=== PATIENT | male | born 1950 | race Caucasian/White ===

== ENCOUNTER 2022-08-13 05:49 | Outpatient (CLI) | payer MEDICARE ==
[~2022-08-13] VITALS: Ht 172.7 cm; Wt 95.0 kg
== END 2022-08-14 14:22 | disposition home or self-care (01) ==
LOC: PREOP 05:49
PROVIDERS: ATTEND Surgery
DX: Z01.818 Encounter for other preprocedural examination (principal)

== ENCOUNTER 2022-08-26 08:55 | Day surgery (SDC) | payer MEDICARE ==
[~2022-08-26] VITALS: Ht 172.7 cm; Wt 95.0 kg
[2022-08-26] MEDS ORDERED: LACTATED RINGERS 1,000 ML IV STA (09:13)
[2022-08-26 10:21] VITALS: BP 131/80
[2022-08-26] MEDS ORDERED: PROPOFOL INJECTION 50 ML IV ONE (10:43)
[2022-08-26 11:20] VITALS: BP 144/85
--- NOTE | 2022-08-26 11:20 | Discharge Inst-Simple/Standard ---
Discharge Inst-Standard Patient Instructions/Follow Up Plan of Care/Instructions/FU: Follow up with Dr. Vo in one week Activity as Tolerated: Yes Discharge Diet: Regular Diet KAYLAH VO DO August 26, 2022 11:20
[2022-08-26 11:25] VITALS: BP 157/90
--- NOTE | 2022-08-26 11:26 | Progress Note-Post Operative ---
Post-Operative Progess Note Surgeon (s)/Fish Straightener (s) Surgeon KAYLAH GRECO DO Fish Straightener: na Pre-Operative Diagnosis + cologaurd Post-Operative Diagnosis ileocecal mass, rectal mass, colon polyps, diverticulosis Procedure & Operative Findings Date of Procedure 08/26/22 Procedure Performed/Findings Colonoscopy with cold biopsies of ileocecal mass with martha inking, snare polypectomy x2, hot biopsy polypectomy x3, hot biopsy rectal mass Anesthesia Type per BUS TRANSPORTATION MANAGER Estimated Blood Loss Estimated blood loss (mL): none Specimens/Packing Specimens Removed ileocecal valve, transverse colon, sigmoid colon, rectum colon, and rectum mass KAYLAH GRECO DO August 26, 2022 11:26
[2022-08-26 11:30] VITALS: BP 144/85
[2022-08-26 12:00] VITALS: BP 144/85
--- NOTE | 2022-08-26 15:39 | Anesthesia-General Post-Op ---
MAC Patient Condition Mental Status/LOC: Same as Preop Cardiovascular: Satisfactory Nausea/Vomiting: Absent Respiratory: Satisfactory Pain: Controlled Complications: Absent Post Op Complications Complications None Follow Up Care/Instructions Patient Instructions None needed. Anesthesiology Discharge Order Discharge Order Patient is doing well, no complaints, stable vital signs, no apparent adverse anesthesia problems. No complications reported per nursing. SEUN SANCHEZ CRNA August 26, 2022 15:39
--- NOTE | 2022-08-26 18:56 | OPERATIVE REPORT ---
DATE OF SERVICE: 08/26/2022 PREOPERATIVE DIAGNOSIS: Positive Cologuard. POSTOPERATIVE DIAGNOSES: Ileocecal mass, colon polyps and rectal mass, minimal diverticulosis. PROCEDURES: Colonoscopy with cold biopsies of ileum rectal mass with Nelsy inking, snare polypectomy x2, hot biopsy polypectomy x3, hot biopsy of rectal mass. SURGEON: Kaylah Vo DO ANESTHESIA: Per DIRECTOR SALES SUPPORT. ESTIMATED BLOOD LOSS: None. COMPLICATIONS: None. INDICATIONS: The patient is a 72-year-old male with positive Cologuard. He understands risks and benefits of procedure and wished to proceed. Consent was signed in chart. DESCRIPTION OF PROCEDURE: The patient was taken to the endoscopy suite, placed in left lateral recumbent position. Timeout was performed. Digital rectal exam was performed noting a palpable soft rectal mass, just past the anal verge inside the rectum. No other palpable abnormalities. The scope was inserted into the rectum and advanced all the way to the cecum with minimal difficulty. Prep was adequate. At ileocecal valve, masses present, which cold biopsies were obtained. Distal to this area, 3 mL of Nelsy ink were injected, 1 mL in 3 locations. Scope was then continuously retracted back. No polyps, masses or ulcerations within the ascending colon. Transverse colon had a larger polyp, which snare polypectomy was performed. Scope was then continuously retracted back into the transverse, descending colon with no other pathology noted. In sigmoid colon, 3 small polyps were present, which hot biopsy polypectomy was performed. Scope was then continuously retracted back to the rectum where another polyp was present, which snare polypectomy was performed. Scope was then retroflexed noting the palpable mass, no other pathology. Hot biopsies were obtained. Scope was returned to its normal position, slowly withdrawn until completely removed. The patient tolerated the procedure well without complications, taken to recovery room in stable condition. RECOMMENDATIONS: The patient will repeat colonoscopy likely in one year. We will need surgery to remove the ileocecal mass. We will need further workup with radiological studies and blood work. Await pathology results for further recommendations. Questionable area [ ] small rectal mass, which may need monitoring versus transanal excision or await biopsy results. Job ID: [id number] DocumentID: [id number] Dictated Date: 08/26/2022 11:29:22 Trucking Contractor Date: 08/26/2022 18:55:00 Dictated By: KAYLAH VO DO
== END 2022-08-26 12:00 | disposition home or self-care (01) ==
LOC: ENDO 08:55
PROVIDERS: ATTEND Surgery
DX: D12.0 Benign neoplasm of cecum (principal); D12.3 Benign neoplasm of transverse colon; D12.8 Benign neoplasm of rectum; K63.5 Polyp of colon; R19.5 Other fecal abnormalities; K57.30 Diverticulosis of large intestine without perforation or abscess without bleeding; E66.9 Obesity, unspecified; Z28.310 Unvaccinated for COVID-19; Z87.891 Personal history of nicotine dependence; Z68.31 Body mass index [BMI] 31.0-31.9, adult

== ENCOUNTER 2022-09-18 05:33 | Outpatient (CLI) | payer MEDICARE ==
[~2022-09-18] VITALS: Ht 172.7 cm; Wt 84.8 kg
== END 2022-09-18 14:16 | disposition home or self-care (01) ==
LOC: PREOP 05:33
PROVIDERS: ATTEND Surgery
DX: Z01.818 Encounter for other preprocedural examination (principal)

== ENCOUNTER 2022-09-24 06:58 | Inpatient (IN) | payer MEDICARE ==
[~2022-09-24] VITALS: Ht 172.7 cm; Wt 84.8 kg
[2022-09-24] VITALS (12 sets, daily range): BP systolic 111–144; BP diastolic 69–91
[2022-09-24] MEDS ORDERED: BUP/EPI 0.5% 1:200,000 (SENSORCAINE) 30 ML VIAL ONE (07:09)
[2022-09-24] MEDS ORDERED: metroNIDAZOLE 500MG/100ML IVPB 100 ML IV ONE (07:30)
[2022-09-24] MEDS ORDERED: ceFAZolin INJECTION 2,000 MG in NS (IVPB) 50 ML IV ONE (07:30)
[2022-09-24] MEDS ORDERED: LACTATED RINGERS 1,000 ML IV PRN (07:30)
--- NOTE | 2022-09-24 07:37 | Progress Note-Pre Operative ---
Pre-Operative Progress Note Date H&P Reviewed: Sep 24, 2022 Time H&P Reviewed: 07:37 History & Physical: H&P Reviewed, Patient Examed, No changes noted Pre-Operative Diagnosis: tubulovillous adenoma right colon KAYLAH GRECO DO Sep 24, 2022 07:37
[2022-09-24] MEDS ORDERED: proPOfol 200 MG/20 ML (DIPRIVAN) VIAL IV ONE (07:43)
[2022-09-24] MEDS ORDERED: fentaNYL INJ 100 MCG/2 ML AMP ONE (07:43)
[2022-09-24] MEDS ORDERED: SEVOFLURANE (ULTANE) 15 ML INHAL SOLN ONE ×2 (07:43→10:12)
[2022-09-24] MEDS ORDERED: LIDOCAINE PF 2% 5 ML (XYLOCAINE) VIAL ONE (07:43)
[2022-09-24] MEDS ORDERED: ONDANSETRON 4 MG/2 ML (SDV) Z0FRAN ONE (07:43)
[2022-09-24] MEDS ORDERED: BUP/EPI 0.5% 1:200,000 (SENSORCAINE) 30 ML VIAL INJ ONE (07:43)
[2022-09-24] MEDS ORDERED: MIDAZOLAM 2 MG/2 ML (VERSED) VIAL ONE (07:44)
[2022-09-24] MEDS ORDERED: HYDROmorphone 2 MG/ML VIAL (DILAUDID) ONE ×2 (09:10→10:43)
[2022-09-24] MEDS ORDERED: ROPIVACAINE 5MG/ML 30ML VIAL ONE (09:12)
[2022-09-24] MEDS ORDERED: ROCURONIUM 50 MG/5 ML (ZEMURON) VIAL IV ONE ×2 (09:22→09:59)
[2022-09-24] MEDS ORDERED: SUGAMMADEX 500 MG/5 ML VIAL (BRIDION) IV ONE (10:14)
[2022-09-24] MEDS ORDERED: HYDROmorphone 2 MG/ML VIAL (DILAUDID) IV ONE (10:45)
[2022-09-24] MEDS ORDERED: ONDANSETRON 4 MG/2 ML (SDV) Z0FRAN IVP PRN (10:45)
[2022-09-24] MEDS ORDERED: LACTATED RINGERS 1,000 ML BAG IV SCH (11:45)
--- NOTE | 2022-09-24 11:47 | Progress Note-Post Operative ---
Post-Operative Progess Note Surgeon (s)/Language Therapist (s) Surgeon KAYLAH GRECO DO Language Therapist: Dr. Swanson to assist in retraction dissection and closure Pre-Operative Diagnosis tubulovillous adenoma right colon Post-Operative Diagnosis same Procedure & Operative Findings Date of Procedure 09/24/22 Procedure Performed/Findings lap hand assisted right colon resection Anesthesia Type general Estimated Blood Loss Estimated blood loss (mL): 100 mL Specimens/Packing Specimens Removed right colon KAYLAH GRECO DO Sep 24, 2022 11:47
--- NOTE | 2022-09-24 11:47 | Consultation ---
HPI History of Present Illness: HPI/Chief Complaint Chief complaint: Tubulovillous adenoma status post partial colon resection HPI: This is a 72-year-old male with history of kidney stones and colon polyps who is status post right colon resection by Dr. Vo in an uncomplicated manner following the diagnosis of a tubulovillous adenoma of the right colon. Currently he is still sedated from anesthesia. Vitals remained stable. We will check labs in the morning. Source: patient Exam Limitations: clinical condition (Sedated from anesthesia) Date Seen 09/24/22 Attending Physician Shaye Spangler MD PCP Admitting Physician: Sherif Vo DO Attending Physician: Sherif Vo DO Referring Physician Date of Admission Sep 24, 2022 at 06:58 Home Medications & Allergies Home Medications Reviewed patient Home Medication Reconciliation performed by pharmacy medication reconciliations rd lab technician and/or nursing. Patients Allergies have been reviewed. Allergies Allergies Coded Allergies No Known Drug Allergies (Unverified09/18/22) Past Utzwqdg-Dxwdqo-Esmpze Hx Past Med/Social Hx: Reviewed Nursing Past Med/Soc Hx, Reviewed and Corrections made Patient Social History Marrital Status: Employed/Student: retired Alcohol Use: Denies Use Smoking Status: Former Smoker Former Smoker, Quit: August 15, 2019 2nd Hand Smoke Exposure: No Recent Foreign Travel: No Contact w/other who traveled: No Recent Hopitalizations: No Immunizations Up To Date Date of Influenza Vaccine: Feb 18, 2022 Seasonal Allergies Seasonal Allergies: No Past Medical History Currently Using CPAP: No Currently Using BIPAP: No Genitourinary: Kidney Stones Gastrointestinal: Polyps History of Blood Disorders: No Review of Systems ROS-Unable to Obtain: Sedated Constitutional: see HPI Physical Exam Physical Exam Vital Signs Vital Signs - First Documented Capillary Refill : Less Than 3 Seconds Height, Weight, BMI Height: '" Weight: lbs. oz. kg; 28.43 BMI Method: General Appearance: No Apparent Distress, WD/WN, Chronically ill Respiratory: Lungs Clear, Normal Breath Sounds Cardiovascular: Regular Rate, Rhythm Results Results/Procedures Labs Patient resulted labs reviewed. Assessment/Plan Assessment and Plan Assess & Plan/Chief Complaint Assessment: Status post right colon resection due to tubulovillous adenoma Kidney stones Colon polyp history Plan: N.p.o. Pain control Supportive care DARIO BENÍTEZ DO Sep 24, 2022 11:46
[2022-09-24] MEDS: LACTATED RINGERS 1,000 ML IV SCH ×2 (12:01→20:57)
--- NOTE | 2022-09-24 13:13 | Physical Therapy Progress Note ---
Therapy Progress Note PT orders received. Pt s/p colon resection this date. PT will evaluate 09/25/2022 as Pt tolerates. ROSA MARIA LANDRUM DPT Sep 24, 2022 13:13
[2022-09-24] MEDS ORDERED: MULT-1029 PO (15:14)
[2022-09-24] MEDS: ceFAZolin INJECTION 2,000 MG in NS (IVPB) 50 ML IV SCH ×2 (15:22→23:48)
[2022-09-24] MEDS: morphine INJ 4 MG/ML 1 ML (VIAL/SYRINGE) IVP PRN ×5 (15:35→23:48)
[2022-09-24] MEDS: metroNIDAZOLE 500MG/100ML IVPB 100 ML IV SCH (16:24)
[2022-09-25] VITALS (7 sets, daily range): BP systolic 120–182; BP diastolic 78–105
[2022-09-25] MEDS: metroNIDAZOLE 500MG/100ML IVPB 100 ML IV SCH (00:23)
[2022-09-25] MEDS: morphine INJ 4 MG/ML 1 ML (VIAL/SYRINGE) IVP PRN (01:55)
[2022-09-25] MEDS: LACTATED RINGERS 1,000 ML IV SCH ×3 (05:05→19:54)
[2022-09-25 05:08] LABS: BASOPHILS % (AUTO) 0 % (0-10); EOSINOPHILS % (AUTO) 0 % (0-10); HEMATOCRIT 38 % (40-54); HEMOGLOBIN 12.8 g/dL (13.3-17.7); LYMPHOCYTES # (AUTO) 1.3 10^3/uL (1.0-4.0); LYMPHOCYTES % (AUTO) 10 % (12-44); MEAN CORPUSCULAR HEMOGLOBIN 32 pg (25-34); MEAN CORPUSCULAR HGB CONC 34 g/dL (32-36); MEAN CORPUSCULAR VOLUME 95 fL (80-99); MEAN PLATELET VOLUME 11.4 fL (9.0-12.2); MONOCYTES # (AUTO) 1.5 10^3/uL (0.0-1.0); MONOCYTES % (AUTO) 12 % (0-12); NEUTROPHILS # (AUTO) 10.2 10^3/uL (1.8-7.8); NEUTROPHILS % (AUTO) 78 % (42-75); PLATELET COUNT 155 10^3/uL (130-400); WHITE BLOOD COUNT 13.1 10^3/uL (4.3-11.0)
[2022-09-25 05:22] LABS: ALBUMIN 3.5 GM/DL (3.2-4.5); POTASSIUM 3.7 MMOL/L (3.6-5.0)
[2022-09-25 05:23] LABS: CALCIUM 8.2 MG/DL (8.5-10.1)
[2022-09-25 05:25] LABS: TOTAL PROTEIN 5.7 GM/DL (6.4-8.2)
[2022-09-25 05:26] LABS: BILIRUBIN,TOTAL 1.1 MG/DL (0.1-1.0)
[2022-09-25 05:28] LABS: CREATININE SERUM 0.86 MG/DL (0.60-1.30)
--- NOTE | 2022-09-25 05:37 | Progress Note ---
Subjective Date Seen by a Provider: Sep 25, 2022 Time Seen by a Provider: 11:00 Subjective/Events-last exam Patient very irritated Anger with not able to have anything for his reflux Tums was given Protonix IV was given Labs remained stable Very displeased about everything Partner at the bedside Review of Systems General: Fatigue, Malaise Gastrointestinal: Nausea, Abdominal Pain Objective Exam Last Set of Vital Signs Vital Signs Date Time Temp Pulse Resp B/P (MAP) Pulse Ox O2 Delivery O2 Flow Rate FiO2 09/25/22 04:00 36.7 72 18 137/78 (97) 95 Nasal Cannula 4.00 Capillary Refill : Less Than 3 Seconds I&O Intake and Output 09/25/22 00:00 Intake Total 2150 ml Output Total 520 ml Balance 1630 ml IV Total 2150 ml Output Urine Total 520 ml Daily Weight Change No General: Alert, Oriented X3, Cooperative, No Acute Distress Lungs: Clear to Auscultation, Normal Air Movement Heart: Regular Rate, Normal S1, Normal S2, No Murmurs Psych/Mental Status: Mental Status NL, Mood NL Results Lab Laboratory Tests 09/25/22 04:47: White Blood Count 13.1H, Red Blood Count 3.98L, Hemoglobin 12.8L, Hematocrit 38L , Mean Corpuscular Volume 95, Mean Corpuscular Hemoglobin 32, Mean Corpuscular Hemoglobin Concent 34, Red Cell Distribution Width 13.6, Platelet Count 155, Mean Platelet Volume 11.4, Immature Granulocyte % (Auto) 1, Neutrophils (%) (Auto) 78H, Lymphocytes (%) (Auto) 10L, Monocytes (%) (Auto) 12, Eosinophils (%) (Auto) 0, Basophils (%) (Auto) 0, Neutrophils # (Auto) 10.2H, Lymphocytes # (Auto) 1.3, Monocytes # (Auto) 1.5H, Eosinophils # (Auto) 0.0, Basophils # (Auto) 0.0, Immature Granulocyte # (Auto) 0.1, Sodium Level 138, Potassium Level 3.7, Chloride Level 106, Carbon Dioxide Level 23, Anion Gap 9, Blood Urea Nitrogen 12, Creatinine 0.86, Estimat Glomerular Filtration Rate 91, BUN/Creatinine Ratio 14, Glucose Level 117H, Calcium Level 8.2L, Corrected Calcium 8.6, Total Bilirubin 1.1H, Aspartate Amino Transf (AST/SGOT) 21, Alanine Aminotransferase (ALT/SGPT) 18, Alkaline Phosphatase 49, Total Protein 5.7L, Albumin 3.5 Assessment/Plan Assessment/Plan Assess & Plan/Chief Complaint Assessment: 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 deferred to surgeon Pain control Supportive care DARIO BENÍTEZ DO Sep 25, 2022 05:37
[2022-09-25] MEDS ORDERED: PANTOPRAZOLE 40 MG (PROTONIX) VIAL IV ONE (05:45)
[2022-09-25] MEDS: CALCIUM CARBONATE 500 MG (TUMS) TAB.CHEW PO PRN ×4 (06:49→23:15)
--- NOTE | 2022-09-25 07:48 | Progress Note - Surgery ---
KAYLAH STOVER 09/25/22 0748: Subjective Time Seen by a Provider: 07:08 Subjective/Events-last exam Patient is seen this morning laying down in bed. He had his nolasco cath taken out and currently has a .28 mL/kg/hr output. He is complaining up GI pain through the night and of having GERD, he says that he has no history of GERD, but says when he gets flare ups like that he usually drinks some baking soda and it goes away very quickly. He was given tums early this morning. He says that he is having some abdominal soreness in each quadrant and that he was happy to get up an walk to the bathroom this morning. Review of Systems General: No Chills, No Night Sweats; Appetite (increased) HEENT: No Head Aches, No Eye Pain Pulmonary: No Dyspnea, No Cough Cardiovascular: No: Chest Pain, Palpitations, Edema Gastrointestinal: Abdominal Pain (all quadrants); No: Nausea, Vomiting, Diarrhea Genitourinary: No Dysuria, No Frequency Neurological: No: Weakness, Numbness Focused Exam Respiratory: Chest Non Tender, No Accessory Muscle Use, No Respiratory Distress; No Crackles, No Decreased Breath Sounds, No Wheezing (to upper and lower bases) Cardiovascular: No Regular Rate, Rhythm, No No Edema, No No Gallop, No No Murmur Peripheral Pulses: 3+ Carotid (R), 3+ Carotid (L); 4+ Radial Pulses (R), 4+ Radial Pulses (L) Skin: No rash, No ulcerations Objective Exam Vital Signs Date Time Temp Pulse Resp B/P (MAP) Pulse Ox O2 Delivery O2 Flow Rate FiO2 09/25/22 04:00 36.7 72 18 137/78 (97) 95 Nasal Cannula 4.00 09/25/22 00:00 36.6 76 16 150/88 (108) 95 Nasal Cannula 4.00 09/24/22 21:50 96 Nasal Cannula 4.00 09/24/22 19:40 36.5 73 17 133/78 (96) 94 Nasal Cannula 4.00 09/24/22 16:02 36.3 74 18 134/81 (98) 93 Nasal Cannula 4.00 09/24/22 15:20 Nasal Cannula 3.50 09/24/22 11:49 36.0 83 18 111/69 (83) 91 Nasal Cannula 4.00 09/24/22 11:48 36.0 83 18 111/69 (83) 91 Nasal Cannula 4.00 09/24/22 11:25 36.7 20 130/78 (95) 94 Nasal Cannula 3.00 09/24/22 11:25 Nasal Cannula 3.00 09/24/22 11:20 20 132/78 (96) 94 Nasal Cannula 3.00 09/24/22 11:15 Nasal Cannula 4.00 09/24/22 11:10 20 132/78 (96) 94 Nasal Cannula 3.00 09/24/22 11:00 20 133/83 (100) 93 Nasal Cannula 3.00 09/24/22 11:00 Nasal Cannula 4.00 09/24/22 10:50 20 131/83 (99) 92 4.00 09/24/22 10:45 OxyMask 6.00 09/24/22 10:40 20 131/83 (99) 92 OxyMask 5.00 09/24/22 10:38 OxyMask 6.00 09/24/22 10:38 36.7 20 144/91 (108) 94 OxyMask 6.00 I & O 09/25/22 07:00 Intake Total 3300 ml Output Total 1495 ml Balance 1805 ml Capillary Refill : Less Than 3 Seconds General Appearance: No Apparent Distress, WD/WN, Chronically ill Respiratory: Lungs Clear, Normal Breath Sounds Cardiovascular: Regular Rate, Rhythm Peripheral Pulses: 3+ Carotid (R), 3+ Carotid (L); 4+ Radial Pulses (R), 4+ Radial Pulses (L) Gastrointestinal: normal bowel sounds, guarding (conscious), tenderness (all quadrants on palpation) Neurologic/Psychiatric: Alert, Oriented x3 Lymphatic: No Adenopathy (neck, supra and subclavicular. ) Results Lab Laboratory Tests 09/25/22 04:47: White Blood Count 13.1H, Red Blood Count 3.98L, Hemoglobin 12.8L, Hematocrit 38L , Mean Corpuscular Volume 95, Mean Corpuscular Hemoglobin 32, Mean Corpuscular Hemoglobin Concent 34, Red Cell Distribution Width 13.6, Platelet Count 155, Mean Platelet Volume 11.4, Immature Granulocyte % (Auto) 1, Neutrophils (%) (Auto) 78H, Lymphocytes (%) (Auto) 10L, Monocytes (%) (Auto) 12, Eosinophils (%) (Auto) 0, Basophils (%) (Auto) 0, Neutrophils # (Auto) 10.2H, Lymphocytes # (Auto) 1.3, Monocytes # (Auto) 1.5H, Eosinophils # (Auto) 0.0, Basophils # (Auto) 0.0, Immature Granulocyte # (Auto) 0.1, Sodium Level 138, Potassium Level 3.7, Chloride Level 106, Carbon Dioxide Level 23, Anion Gap 9, Blood Urea Nitrogen 12, Creatinine 0.86, Estimat Glomerular Filtration Rate 91, BUN/Creatinine Ratio 14, Glucose Level 117H, Calcium Level 8.2L, Corrected Calcium 8.6, Total Bilirubin 1.1H, Aspartate Amino Transf (AST/SGOT) 21, Alanine Aminotransferase (ALT/SGPT) 18, Alkaline Phosphatase 49, Total Protein 5.7L, Albumin 3.5 Microbiology 09/24/22 MRSA Screen - Final, Complete MRSA not isolated Assessment/Plan Assessment/Plan Assessment/Plan tubulovillous adenoma right colon GERD Patient is to be kept NPO until ...., he is currently doing well but is upset about not getting antacids when he was wanting them. His vitals and labs all look within normal limits and will continue to monitor him over the next couple of days. KAYLAH GRECO DO 09/25/22 1636: Subjective Date Seen by a Provider: Sep 25, 2022 Subjective/Events-last exam Nolasco removed this am. Having reflux overnight bad. Belching some. Taking some ice chips. No flatus. Pain controlled and already ambulating. Denies n/v fever sweats chills shortness of breath or chest pain. Objective Exam General Appearance: No Apparent Distress, WD/WN, Chronically ill HEENT: PERRL/EOMI, Normal ENT Inspection Neck: Normal Inspection, Supple Respiratory: Chest Non Tender, No Accessory Muscle Use, No Respiratory Distress Cardiovascular: Regular Rate, Rhythm, No JVD Gastrointestinal: non tender, soft, distended (minimal); No guarding (conscious); tenderness (incisional) Extremity: Non Tender Neurologic/Psychiatric: Alert, Oriented x3 Skin: Normal Color, Warm/Dry Lymphatic: No Adenopathy Assessment/Plan Assessment/Plan Assessment/Plan s/p lap hand assisted right colon resection pod 1 nolasco removed iv fluids pain control await bowel function then start clears labs in am ambulate use IS Protonix/Tums Ambulate TID for DVT prophylaxis and scd's Supervisory-Addendum Brief Verification & Attestation Participated in pt care: history, MDM, physical Personally performed: exam, history, MDM, supervision of care Care discussed with: Medical Student Procedures: n/a Results interpretation: Verified all documentation Verification and Attestation of Medical Student E/M Service A PA student performed and documented this service in my presence. I reviewed and verified all information documented by the medical student and made modifications to such information, when appropriate. I personally performed the physical exam and medical decision making. Kaylah Greco, Sep 25, 2022,16:38 KAYLAH STOVER Sep 25, 2022 07:48 KAYLAH GRECO DO Sep 25, 2022 16:36
--- NOTE | 2022-09-25 10:12 | Anesthesia-General Post-Op ---
General Patient Condition Mental Status/LOC: Same as Preop Cardiovascular: Satisfactory Nausea/Vomiting: Absent Respiratory: Satisfactory Pain: Controlled Complications: Absent Post Op Complications Complications None Follow Up Care/Instructions Patient Instructions None needed. Anesthesia/Patient Condition Patient Condition Patient is doing well, no complaints, stable vital signs, no apparent adverse anesthesia problems. No complications reported per nursing. SEUN SANCHEZ CRNA Sep 25, 2022 10:12
--- NOTE | 2022-09-25 10:12 | Physical Therapy Evaluation ---
PT Evaluation-General Medical Diagnosis Admission Date Sep 24, 2022 at 06:58 Medical Diagnosis: tubulovillous adenoma right colon Onset Date: Sep 24, 2022 Therapy Diagnosis Therapy Diagnosis: debility Precautions Precautions/Isolations: Standard Precautions Referral Physician: Gilda Reason for Referral: Evaluation/Treatment Medical History Pertinent Medical History: COPD Current History s/p right colon resection Reviewed History: Yes Social History Home: Single Level Current Living Status: Spouse Prior Prior Level of Function SCALE: Activities may be completed with or without assistive devices. 2-Bgertevpph-wgtmjad completes the activity by him/herself with no assistance from a helper. 5-Set-up or Clean-up Assistance-helper sets up or cleans up; patient completes activity. [place] assists only prior to or following the activity. 4-Supervision or Touching Assistance-helper provides verbal cues and/or touching/steadying and/or contact guard assistance as patient completes activity. Assistance may be provided throughout the activity or intermittently. 3-Partial/Moderate Assistance-helper does LESS THAN HALF the effort. [place] lifts, holds or supports trunk or limbs, but provides less than half the effort. 2-Substantial/Maximal Assistance-helper does MORE THAN HALF the effort. [place] lifts or holds trunk or limbs and provides more than half the effort. 4-Pwwkwckwp-soixfa does ALL the effort. Patient does none of the effort to complete the activity. Or, the assistance of 2 or more helpers is required for the patient to complete the activity. If activity was not attempted, code reason: 7-Patient Refused. 9-Not Applicable-not attempted and the patient did not perform the activity before the current illness, exacerbation or injury. 10-Not Attempted due to Environmental Limitations-(lack of equipment, weather restraints, etc.). 88-Not Attempted due to Medical Conditions or Safety Concerns. Bed Mobility: 6 Transfers (B,C,W/C): 6 Gait: 6 Stairs: 6 Indoor Mobility (Ambulation): Independent Stairs: Independent Prior Devices Use: None PT Evaluation-Current Subjective Patient is very verbally angry and agitated. Objective Patient Orientation: Normal For Age Attachments: Oxygen, IV ROM/Strength ROM Lower Extremities bilateral LE WFL Strength Lower Extremities 5/5 grossly bilateral LE all planes Integumentary/Posture Bowel Incontinence: No Bladder Incontinence: No Posture WFL Neuromuscular (Tone, Coordination, Reflexes) grossly intact Sensory Vision: Functional Hearing: Functional Transfers Lying to Sitting/Side of Bed(Q: 6 Sit to Stand (QC): 6 Chair/Amt-qf-Gxpvg Xfer(QC): 6 Gait Mode of Locomotion: Walk Anticipated Mode of Locomotion: Walk Walk 10 feet (QC): 6 Walk 50 ft with 2 Turns(QC): 6 Walk 150 ft (QC): 6 Distance: 400' Gait Assistive Device: FWW Comments/Gait Description FWW for energy conservation and to take pressure off abdomen to stand erect Balance Sitting Static: Normal Sitting Dynamic: Normal Standing Static: Normal Standing Dynamic: Normal Assessment/Needs Patient is currently at independent [facility] with all gross motor skills safely and does not require skilled PT intervention. Patient to ambulate PRN in hallway with family or nursing staff. Rehab Potential: Fair PT Plan Treatment/Plan Treatment Plan: Discontinue PT, goals met Treatment Duration: Sep 25, 2022 Frequency: 1 time per week Estimated Hrs Per Day: .25 hour per day Patient and/or Family Agrees t: Yes Time Time In: 900 Time Out: 910 DATE: Sep 25, 2022 Total Billed Treatment Time: 10 Total Billed Treatment 1 visit EVMod 10 min PETRONA HERNANDEZ PT Sep 25, 2022 10:12
[2022-09-25] MEDS: ONDANSETRON 4 MG/2 ML (SDV) Z0FRAN IVP PRN ×2 (11:07→18:27)
[2022-09-25] MEDS: HYDROcodone/APAP 5 MG/325 MG (LORTAB) TAB PO PRN ×3 (11:07→23:16)
[2022-09-25] MEDS ORDERED: PANTOPRAZOLE 40 MG (PROTONIX) VIAL IV NR (12:45)
[2022-09-26] VITALS: BP 153/86
[2022-09-26] MEDS: LACTATED RINGERS 1,000 ML IV SCH ×3 (03:59→20:33)
[2022-09-26 04:12] VITALS: BP 133/77
[2022-09-26] MEDS: HYDROcodone/APAP 5 MG/325 MG (LORTAB) TAB PO PRN ×4 (04:37→20:44)
--- NOTE | 2022-09-26 04:38 | OPERATIVE REPORT ---
DATE OF SERVICE: 09/24/2022 PREOPERATIVE DIAGNOSIS: Tubulovillous adenoma of the right colon. POSTOPERATIVE DIAGNOSIS: Tubulovillous adenoma of the right colon. PROCEDURE: Laparoscopic hand-assisted right colon resection. SURGEON: Kaylah Vo DO SENIOR QUALITY MANAGER: Pierre Swanson DO. Sky, assisted in retraction, dissection, and closure. ANESTHESIA: General. ESTIMATED BLOOD LOSS: 100 mL. COMPLICATIONS: None. INDICATIONS: The patient is a 72-year-old male with a large tubulovillous adenoma of the right colon. He understands risks and benefits of procedure and wished to proceed. Consent was signed in chart. DESCRIPTION OF PROCEDURE: The patient was taken to the operating suite where he was prepped and draped in sterile fashion. Timeout was performed. Midline incision was made around the umbilicus. Cautery was used to dissect down to subcutaneous tissues, the fascia was then opened. A 12 mm trocar was then placed in the subxiphoid region and hand port was then inserted through the midline incision and an pneumoperitoneum was achieved. Under direct visualization of laparoscope, a 5 mm trocar was placed in the right lower quadrant. A tattoo was identified on the right colon. The cecum and right colon was then mobilized along the white line of Toldt with cautery mobilizing the right colon to the midline structure. The adhesions were present down in the right gutter, which were then mobilized and freed allowing the small bowel and right colon mobilized to midline structure. The hepatic flexure to be taken down with blunt and cautery dissection as well, also utilized the LigaSure in order to bring the cecum and right colon out of the midline incision. The distal ileum was then dissected around and a TRINH stapler was fired across it. LigaSure was then used to divide the mesentery along the right colon and the colon distal to the tattoo was dissected around preparing for a orab-dk-gvpx anastomosis. The small bowel was then brought to the colon distal to the tattooing and a pojd-an-xtpm anastomosis was then created using a linear TRINH stapler. Cross stitch was then placed. Hemostasis was achieved. Specimen was handed off. Abdomen was then irrigated, some slight ooze along the duodenum after irrigated and controlled with a small piece of Surgicel was placed in this area. The trocars were then removed. The fascia was then closed using 1-0 looped PDS at the midline. The skin was then closed using joe. The area was washed and dried and sterile bandages were applied. The patient tolerated the procedure well without any complications, taken to recovery room in stable condition. Job ID: [id number] DocumentID: [id number] Dictated Date: 09/25/2022 23:30:25 Director Of Employee Development Date: 09/26/2022 04:36:00 Dictated By: KAYLAH VO DO
[2022-09-26 05:34] LABS: BASOPHILS % (AUTO) 0 % (0-10); EOSINOPHILS % (AUTO) 0 % (0-10); HEMATOCRIT 37 % (40-54); HEMOGLOBIN 12.5 g/dL (13.3-17.7); LYMPHOCYTES # (AUTO) 1.6 10^3/uL (1.0-4.0); LYMPHOCYTES % (AUTO) 15 % (12-44); MEAN CORPUSCULAR HEMOGLOBIN 32 pg (25-34); MEAN CORPUSCULAR HGB CONC 34 g/dL (32-36); MEAN CORPUSCULAR VOLUME 95 fL (80-99); MEAN PLATELET VOLUME 11.4 fL (9.0-12.2); MONOCYTES # (AUTO) 1.1 10^3/uL (0.0-1.0); MONOCYTES % (AUTO) 11 % (0-12); NEUTROPHILS # (AUTO) 7.5 10^3/uL (1.8-7.8); NEUTROPHILS % (AUTO) 73 % (42-75); PLATELET COUNT 124 10^3/uL (130-400); WHITE BLOOD COUNT 10.2 10^3/uL (4.3-11.0)
[2022-09-26 05:44] LABS: ALBUMIN 3.5 GM/DL (3.2-4.5)
[2022-09-26 05:45] LABS: POTASSIUM 3.6 MMOL/L (3.6-5.0)
[2022-09-26 05:46] LABS: CALCIUM 8.3 MG/DL (8.5-10.1)
[2022-09-26 05:47] LABS: TOTAL PROTEIN 5.7 GM/DL (6.4-8.2)
[2022-09-26 05:49] LABS: BILIRUBIN,TOTAL 1.4 MG/DL (0.1-1.0)
[2022-09-26 05:50] LABS: CREATININE SERUM 0.84 MG/DL (0.60-1.30)
[2022-09-26 06:21] LABS: SMEAR SCAN COMMENT YES
[2022-09-26 07:26] VITALS: BP 146/89
--- NOTE | 2022-09-26 08:06 | Progress Note - Surgery ---
KAYLAH STOVER 09/26/22 0806: Subjective Date Seen by a Provider: Sep 26, 2022 Time Seen by a Provider: 07:18 Subjective/Events-last exam Patient is seen this morning sitting up in his chair. He is much more bright and cheery than the day prior. He states that he has started urinating again after not the day prior, as this is a common problem for him. He denies any hematuria in his urine. He says that his GERD has resolved from the night prior and that he has not had any problems within the last day so "the medicine must be working." He walked 4 times yesterday and says that he believes that he can do more than 4 times today. He says that he still has not had a bowel movement yet and has not passed any gas still up to this point. He states that he is not having any pain in his abdomen, mostly just soreness at this point. Review of Systems General: No Chills, No Night Sweats, No Fatigue HEENT: No Visual Changes, No Eye Pain Pulmonary: No Dyspnea, No Cough Cardiovascular: No: Chest Pain, Palpitations Gastrointestinal: No: Nausea, Vomiting, Diarrhea, Constipation Genitourinary: No Hematuria, No Retention Musculoskeletal: No: neck pain, shoulder pain Neurological: No: Weakness, Numbness Focused Exam Respiratory: Chest Non Tender, Lungs Clear, No Accessory Muscle Use, No Respiratory Distress; No Crackles, No Rales Cardiovascular: Regular Rate, Rhythm, No Edema, No Gallop, No Murmur Peripheral Pulses: 3+ Carotid (R), 3+ Carotid (L); 4+ Radial Pulses (R), 4+ Radial Pulses (L) Skin: No rash, No ulcerations Objective Exam Vital Signs Date Time Temp Pulse Resp B/P (MAP) Pulse Ox O2 Delivery O2 Flow Rate FiO2 09/26/22 07:26 36.1 86 18 146/89 (108) 92 Room Air 09/26/22 07:16 93 Nasal Cannula 2.00 09/26/22 04:12 36.1 75 16 133/77 (95) 92 Nasal Cannula 2.00 09/26/22 00:00 80 20 153/86 (108) 91 Nasal Cannula 2.00 2.00 09/25/22 20:01 90 Room Air 4.00 09/25/22 19:34 37.2 76 20 143/80 (101) 90 Room Air 09/25/22 15:58 37.0 82 20 120/92 (101) 94 Nasal Cannula 4.00 09/25/22 14:10 136/81 (99) 09/25/22 11:46 36.7 78 18 182/105 (130) 95 High Flow N/C 4.00 09/25/22 08:15 Nasal Cannula 4.00 I & O 09/26/22 07:00 Intake Total 500 ml Balance 500 ml Capillary Refill : Less Than 3 Seconds General Appearance: No Apparent Distress, WD/WN, Chronically ill HEENT: PERRL/EOMI, Normal ENT Inspection Neck: Normal Inspection, Supple Respiratory: Chest Non Tender, No Accessory Muscle Use, No Respiratory Distress Cardiovascular: Regular Rate, Rhythm, No Gallop, No JVD, No Murmur Peripheral Pulses: 3+ Carotid (R), 3+ Carotid (L); 4+ Radial Pulses (R), 4+ Radial Pulses (L) Gastrointestinal: non tender, soft, distended (minimal); No guarding (conscious); tenderness (incisional) Extremity: Non Tender, No Calf Tenderness, No Pedal Edema Neurologic/Psychiatric: Alert, Oriented x3, Normal Mood/Affect Skin: Normal Color, Warm/Dry Lymphatic: No Adenopathy Results Lab Laboratory Tests 09/26/22 05:21: White Blood Count 10.2, Red Blood Count 3.87L, Hemoglobin 12.5L, Hematocrit 37L, Mean Corpuscular Volume 95, Mean Corpuscular Hemoglobin 32, Mean Corpuscular Hemoglobin Concent 34, Red Cell Distribution Width 13.5, Platelet Count 124L, Mean Platelet Volume 11.4, Immature Granulocyte % (Auto) 0, Neutrophils (%) (Auto) 73, Lymphocytes (%) (Auto) 15, Monocytes (%) (Auto) 11, Eosinophils (%) (Auto) 0, Basophils (%) (Auto) 0, Neutrophils # (Auto) 7.5, Lymphocytes # (Auto) 1.6, Monocytes # (Auto) 1.1H, Eosinophils # (Auto) 0.0, Basophils # (Auto) 0.0, Immature Granulocyte # (Auto) 0.0, Percent Immature Platelet Fraction 8.2H, Sodium Level 138, Potassium Level 3.6, Chloride Level 105, Carbon Dioxide Level 23, Anion Gap 10, Blood Urea Nitrogen 7, Creatinine 0.84, Estimat Glomerular Filtration Rate 92, BUN/Creatinine Ratio 8, Glucose Level 103, Calcium Level 8.3L, Corrected Calcium 8.7, Total Bilirubin 1.4H, Aspartate Amino Transf (AST/SGOT) 23, Alanine Aminotransferase (ALT/SGPT) 17, Alkaline Phosphatase 47, Total Protein 5.7L, Albumin 3.5, Smear Scan YES Microbiology 09/24/22 MRSA Screen - Final, Complete MRSA not isolated Assessment/Plan Assessment/Plan Assessment/Plan Assessment: 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 deferred to surgeon Pain control Supportive care KAYLAH VO DO 09/26/222202: Subjective Subjective/Events-last exam Pain controlled. Reflux better. Urinating without difficulty. Ambulating. No bowel function yet. Using IS some. Denies n/v fever sweats chills shortness of breath or chest pain. 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 He is abmulationg at minimum 3 times a day and greater than 100ft. Continue IS Protonix/Tums for gerd Iv fluids. Supervisory-Addendum Brief Verification & Attestation Participated in pt care: history, MDM, physical Personally performed: exam, history, MDM, supervision of care Care discussed with: Medical Student Procedures: n/a Results interpretation: Verified all documentation Verification and Attestation of Medical Student E/M Service A PA student performed and documented this service in my presence. I reviewed and verified all information documented by the medical student and made modifications to such information, when appropriate. I personally performed the physical exam and medical decision making. Kaylah Vo Sep 26, 2022,22:02 KAYLAH STOVER Sep 26, 2022 08:06 KAYLAH VO DO Sep 26, 2022 22:03
[2022-09-26] MEDS: PANTOPRAZOLE 40 MG (PROTONIX) VIAL IV SCH (09:39)
[2022-09-26 11:28] VITALS: BP 144/80
--- NOTE | 2022-09-26 12:21 | Progress Note ---
Subjective Date Seen by a Provider: Sep 26, 2022 Time Seen by a Provider: 11:00 Subjective/Events-last exam Patient doing a little bit better No flatus yet Still angry at times Labs are stable Review of Systems General: Fatigue, Malaise Gastrointestinal: Nausea, Abdominal Pain Objective Exam Last Set of Vital Signs Vital Signs Date Time Temp Pulse Resp B/P (MAP) Pulse Ox O2 Delivery O2 Flow Rate FiO2 09/26/22 11:28 36.2 73 16 144/80 (101) 91 Room Air 09/26/22 09:00 2.00 Capillary Refill : Less Than 3 Seconds I&O Intake and Output 09/25/22 23:59 Intake Total 1650 ml Output Total 575 ml Balance 1075 ml Intake Oral 500 ml IV Total 1150 ml Output Urine Total 575 ml Bladder Scan Volume Amount 259 ml # Voids 3 General: Alert, Oriented X3, Cooperative, No Acute Distress Lungs: Clear to Auscultation, Normal Air Movement Heart: Regular Rate, Normal S1, Normal S2, No Murmurs Psych/Mental Status: Mental Status NL, Mood NL Results Lab Laboratory Tests 09/26/22 05:21: White Blood Count 10.2, Red Blood Count 3.87L, Hemoglobin 12.5L, Hematocrit 37L, Mean Corpuscular Volume 95, Mean Corpuscular Hemoglobin 32, Mean Corpuscular Hemoglobin Concent 34, Red Cell Distribution Width 13.5, Platelet Count 124L, Mean Platelet Volume 11.4, Immature Granulocyte % (Auto) 0, Neutrophils (%) (Auto) 73, Lymphocytes (%) (Auto) 15, Monocytes (%) (Auto) 11, Eosinophils (%) (Auto) 0, Basophils (%) (Auto) 0, Neutrophils # (Auto) 7.5, Lymphocytes # (Auto) 1.6, Monocytes # (Auto) 1.1H, Eosinophils # (Auto) 0.0, Basophils # (Auto) 0.0, Immature Granulocyte # (Auto) 0.0, Percent Immature Platelet Fraction 8.2H, Sodium Level 138, Potassium Level 3.6, Chloride Level 105, Carbon Dioxide Level 23, Anion Gap 10, Blood Urea Nitrogen 7, Creatinine 0.84, Estimat Glomerular Filtration Rate 92, BUN/Creatinine Ratio 8, Glucose Level 103, Calcium Level 8.3L, Corrected Calcium 8.7, Total Bilirubin 1.4H, Aspartate Amino Transf (AST/SGOT) 23, Alanine Aminotransferase (ALT/SGPT) 17, Alkaline Phosphatase 47, Total Protein 5.7L, Albumin 3.5, Smear Scan YES Microbiology 09/24/22 MRSA Screen - Final, Complete MRSA not isolated Assessment/Plan Assessment/Plan Assess & Plan/Chief Complaint Assessment: 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 deferred to surgeon Pain control Supportive care DARIO BENÍTEZ DO Sep 26, 2022 12:21
[2022-09-26 15:56] VITALS: BP 149/90
[2022-09-26 19:03] VITALS: BP 162/83
[2022-09-27] VITALS (7 sets, daily range): BP systolic 127–162; BP diastolic 80–87
[2022-09-27] MEDS: LACTATED RINGERS 1,000 ML IV SCH ×3 (04:06→20:00)
[2022-09-27 05:36] LABS: BASOPHILS % (AUTO) 0 % (0-10); EOSINOPHILS # (AUTO) 0.1 10^3/uL (0.0-0.3); EOSINOPHILS % (AUTO) 1 % (0-10); HEMATOCRIT 38 % (40-54); HEMOGLOBIN 13.1 g/dL (13.3-17.7); LYMPHOCYTES # (AUTO) 1.1 10^3/uL (1.0-4.0); LYMPHOCYTES % (AUTO) 10 % (12-44); MEAN CORPUSCULAR HEMOGLOBIN 32 pg (25-34); MEAN CORPUSCULAR HGB CONC 35 g/dL (32-36); MEAN CORPUSCULAR VOLUME 94 fL (80-99); MEAN PLATELET VOLUME 11.6 fL (9.0-12.2); MONOCYTES # (AUTO) 0.9 10^3/uL (0.0-1.0); MONOCYTES % (AUTO) 8 % (0-12); NEUTROPHILS # (AUTO) 8.9 10^3/uL (1.8-7.8); NEUTROPHILS % (AUTO) 81 % (42-75); PLATELET COUNT 143 10^3/uL (130-400); WHITE BLOOD COUNT 11.1 10^3/uL (4.3-11.0)
[2022-09-27 06:10] LABS: ALBUMIN 3.7 GM/DL (3.2-4.5); BILIRUBIN,TOTAL 1.6 MG/DL (0.1-1.0); CALCIUM 8.3 MG/DL (8.5-10.1); CREATININE SERUM 0.76 MG/DL (0.60-1.30); POTASSIUM 3.4 MMOL/L (3.6-5.0); TOTAL PROTEIN 5.9 GM/DL (6.4-8.2)
--- NOTE | 2022-09-27 06:27 | Progress Note ---
Subjective Date Seen by a Provider: Sep 27, 2022 Time Seen by a Provider: 11:00 Subjective/Events-last exam Patient doing well Sleeping a bit Labs stable Patient doing well Passing flatus so advance diet may be an option Review of Systems General: Fatigue Gastrointestinal: Abdominal Pain Objective Exam Last Set of Vital Signs Vital Signs Date Time Temp Pulse Resp B/P (MAP) Pulse Ox O2 Delivery O2 Flow Rate FiO2 09/27/22 04:00 37.1 75 16 137/80 (99) 95 Nasal Cannula 2.00 Capillary Refill : Less Than 3 Seconds I&O Intake and Output 09/27/22 00:00 Intake Total 1000 ml Balance 1000 ml Intake Oral 0 ml IV Total 1000 ml # Voids 10 General: Alert, Oriented X3, Cooperative, No Acute Distress Lungs: Clear to Auscultation, Normal Air Movement Heart: Regular Rate, Normal S1, Normal S2, No Murmurs Psych/Mental Status: Mental Status NL, Mood NL Results Lab Laboratory Tests 09/27/22 05:05: White Blood Count 11.1H, Red Blood Count 4.05L, Hemoglobin 13.1L, Hematocrit 38L , Mean Corpuscular Volume 94, Mean Corpuscular Hemoglobin 32, Mean Corpuscular Hemoglobin Concent 35, Red Cell Distribution Width 13.3, Platelet Count 143, Mean Platelet Volume 11.6, Immature Granulocyte % (Auto) 1, Neutrophils (%) (Auto) 81H, Lymphocytes (%) (Auto) 10L, Monocytes (%) (Auto) 8, Eosinophils (%) (Auto) 1, Basophils (%) (Auto) 0, Neutrophils # (Auto) 8.9H, Lymphocytes # (Auto) 1.1, Monocytes # (Auto) 0.9, Eosinophils # (Auto) 0.1, Basophils # (Auto) 0.0, Immature Granulocyte # (Auto) 0.1, Sodium Level 138, Potassium Level 3.4L, Chloride Level 104, Carbon Dioxide Level 21, Anion Gap 13, Blood Urea Nitrogen 6L, Creatinine 0.76, Estimat Glomerular Filtration Rate 95, BUN/Creatinine Ratio 8, Glucose Level 90, Calcium Level 8.3L, Corrected Calcium 8.5, Total Bilirubin 1.6H, Aspartate Amino Transf (AST/SGOT) 22, Alanine Aminotransferase (ALT/SGPT) 16, Alkaline Phosphatase 52, Total Protein 5.9L, Albumin 3.7 Microbiology 09/24/22 MRSA Screen - Final, Complete MRSA not isolated Assessment/Plan Assessment/Plan Assess & Plan/Chief Complaint Assessment: 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 Pain control Supportive care DARIO BENÍTEZ DO Sep 27, 2022 06:27
[2022-09-27] MEDS: PANTOPRAZOLE 40 MG (PROTONIX) VIAL IV SCH (08:52)
[2022-09-27] MEDS: ACETAMINOPHEN 500 MG TAB (TYLENOL) PO PRN ×2 (12:55→20:00)
--- NOTE | 2022-09-27 13:54 | Progress Note - Surgery ---
Subjective Date Seen by a Provider: Sep 27, 2022 Time Seen by a Provider: 13:54 Subjective/Events-last exam Passing flatus. Ambulating. Pain controlled. Using IS some. No new complaints. Denies n/v fever sweats chills shortness of breath or chest pain. Objective Exam Vital Signs Date Time Temp Pulse Resp B/P (MAP) Pulse Ox O2 Delivery O2 Flow Rate FiO2 09/27/22 11:32 36.6 75 18 162/86 (111) 93 Nasal Cannula 2.00 09/27/22 09:00 Nasal Cannula 2.00 09/27/22 07:53 36.8 83 16 145/87 (106) 93 Room Air 09/27/22 04:00 37.1 75 16 137/80 (99) 95 Nasal Cannula 2.00 09/27/22 00:00 37.1 96 18 137/85 (102) 92 Nasal Cannula 2.00 09/26/22 20:01 93 Room Air 2.00 09/26/22 19:03 36.8 79 18 162/83 (109) 93 Room Air 09/26/22 18:17 Nasal Cannula 2.00 09/26/22 15:56 37.3 90 20 149/90 (109) 92 Room Air I & O 09/27/22 07:00 Intake Total 1000 ml Balance 1000 ml Capillary Refill : Less Than 3 Seconds General Appearance: No Apparent Distress, Chronically ill HEENT: PERRL/EOMI, Normal ENT Inspection Neck: Normal Inspection, Supple Respiratory: Chest Non Tender, No Accessory Muscle Use, No Respiratory Distress Cardiovascular: Regular Rate, Rhythm, No JVD Peripheral Pulses: 3+ Carotid (R), 3+ Carotid (L); 4+ Radial Pulses (R), 4+ Radial Pulses (L) Gastrointestinal: non tender, soft, tenderness (incisional minimal, incisions c/d/i has slight erythema around midline incision cellulitis vs bruising) Extremity: Non Tender, No Calf Tenderness Neurologic/Psychiatric: Alert, Oriented x3, Normal Mood/Affect Skin: Normal Color, Warm/Dry Lymphatic: No Adenopathy Results Lab Laboratory Tests 09/27/22 05:05: White Blood Count 11.1H, Red Blood Count 4.05L, Hemoglobin 13.1L, Hematocrit 38L , Mean Corpuscular Volume 94, Mean Corpuscular Hemoglobin 32, Mean Corpuscular Hemoglobin Concent 35, Red Cell Distribution Width 13.3, Platelet Count 143, Mean Platelet Volume 11.6, Immature Granulocyte % (Auto) 1, Neutrophils (%) (Auto) 81H, Lymphocytes (%) (Auto) 10L, Monocytes (%) (Auto) 8, Eosinophils (%) (Auto) 1, Basophils (%) (Auto) 0, Neutrophils # (Auto) 8.9H, Lymphocytes # (A uto) 1.1, Monocytes # (Auto) 0.9, Eosinophils # (Auto) 0.1, Basophils # (Auto) 0.0, Immature Granulocyte # (Auto) 0.1, Sodium Level 138, Potassium Level 3.4L, Chloride Level 104, Carbon Dioxide Level 21, Anion Gap 13, Blood Urea Nitrogen 6L, Creatinine 0.76, Estimat Glomerular Filtration Rate 95, BUN/Creatinine Ratio 8, Glucose Level 90, Calcium Level 8.3L, Corrected Calcium 8.5, Total Bilirubin 1.6H, Aspartate Amino Transf (AST/SGOT) 22, Alanine Aminotransferase (ALT/SGPT) 16, Alkaline Phosphatase 52, Total Protein 5.9L, Albumin 3.7 Microbiology 09/24/22 MRSA Screen - Final, Complete MRSA not isolated Assessment/Plan Assessment/Plan Assessment/Plan 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 Hgb stable start Lovenox. He is ambulating at minimum 3 times a day and greater than 100ft. Continue IS instructed 10 x per hr while awake he isn't doing it much. Erythema vs bruising at midline incision will start Augmentin Protonix/Tums for gerd Iv fluids. KAYLAH GRECO DO Sep 27, 2022 13:54
[2022-09-27] MEDS: ENOXAPARIN 40 MG/0.4 ML (LOVENOX) SYR SC SCH (21:55)
[2022-09-27] MEDS: AUGMENTIN 875 MG TAB (AMOXICILLIN/CLAVULANATE) PO SCH (21:55)
[2022-09-28] MEDS: LACTATED RINGERS 1,000 ML IV SCH (03:56)
[2022-09-28 03:59] VITALS: BP 145/87
[2022-09-28 05:34] LABS: BASOPHILS # (AUTO) 0.1 10^3/uL (0.0-0.1); BASOPHILS % (AUTO) 1 % (0-10); EOSINOPHILS # (AUTO) 0.2 10^3/uL (0.0-0.3); EOSINOPHILS % (AUTO) 1 % (0-10); HEMATOCRIT 39 % (40-54); HEMOGLOBIN 13.2 g/dL (13.3-17.7); LYMPHOCYTES # (AUTO) 1.7 10^3/uL (1.0-4.0); LYMPHOCYTES % (AUTO) 15 % (12-44); MEAN CORPUSCULAR HEMOGLOBIN 32 pg (25-34); MEAN CORPUSCULAR HGB CONC 34 g/dL (32-36); MEAN CORPUSCULAR VOLUME 93 fL (80-99); MEAN PLATELET VOLUME 11.4 fL (9.0-12.2); MONOCYTES # (AUTO) 1.1 10^3/uL (0.0-1.0); MONOCYTES % (AUTO) 9 % (0-12); NEUTROPHILS # (AUTO) 8.3 10^3/uL (1.8-7.8); NEUTROPHILS % (AUTO) 73 % (42-75); PLATELET COUNT 196 10^3/uL (130-400); WHITE BLOOD COUNT 11.3 10^3/uL (4.3-11.0)
[2022-09-28 05:37] LABS: ALBUMIN 3.8 GM/DL (3.2-4.5); BILIRUBIN,TOTAL 1.5 MG/DL (0.1-1.0); CALCIUM 8.5 MG/DL (8.5-10.1); CREATININE SERUM 0.74 MG/DL (0.60-1.30); POTASSIUM 3.5 MMOL/L (3.6-5.0); TOTAL PROTEIN 6.2 GM/DL (6.4-8.2)
--- NOTE | 2022-09-28 06:47 | Progress Note ---
Subjective Date Seen by a Provider: Sep 28, 2022 Time Seen by a Provider: 11:00 Subjective/Events-last exam Patient doing much better Abdominal pain improved Angry about not getting hemorrhoid treatment fast enough Supportive care we will continue Review of Systems General: Fatigue, Malaise Gastrointestinal: Abdominal Pain Objective Exam Last Set of Vital Signs Vital Signs Date Time Temp Pulse Resp B/P (MAP) Pulse Ox O2 Delivery O2 Flow Rate FiO2 09/28/22 03:59 36.6 70 16 145/87 (106) 92 Room Air 09/27/22 20:25 2.00 Capillary Refill : Less Than 3 Seconds I&O Intake and Output 09/28/22 00:00 Intake Total 1905 ml Balance 1905 ml Intake Oral 905 ml IV Total 1000 ml # Voids 10 General: Alert, Oriented X3, Cooperative, No Acute Distress Lungs: Clear to Auscultation, Normal Air Movement Heart: Regular Rate, Normal S1, Normal S2, No Murmurs Psych/Mental Status: Mental Status NL, Mood NL Results Lab Laboratory Tests 09/28/22 04:55: White Blood Count 11.3H, Red Blood Count 4.16L, Hemoglobin 13.2L, Hematocrit 39L , Mean Corpuscular Volume 93, Mean Corpuscular Hemoglobin 32, Mean Corpuscular Hemoglobin Concent 34, Red Cell Distribution Width 13.2, Platelet Count 196, Mean Platelet Volume 11.4, Immature Granulocyte % (Auto) 1, Neutrophils (%) (Auto) 73, Lymphocytes (%) (Auto) 15, Monocytes (%) (Auto) 9, Eosinophils (%) (Auto) 1, Basophils (%) (Auto) 1, Neutrophils # (Auto) 8.3H, Lymphocytes # (Auto) 1.7, Monocytes # (Auto) 1.1H, Eosinophils # (Auto) 0.2, Basophils # (Auto) 0.1, Immature Granulocyte # (Auto) 0.1, Sodium Level 136, Potassium Level 3.5L, Chloride Level 105, Carbon Dioxide Level 21, Anion Gap 10, Blood Urea Nitrogen 6L, Creatinine 0.74, Estimat Glomerular Filtration Rate 96, BUN/Creatinine Ratio 8, Glucose Level 102, Calcium Level 8.5, Corrected Calcium 8.7, Total Bilirubin 1.5H, Aspartate Amino Transf (AST/SGOT) 25, Alanine Aminotransferase (ALT/SGPT) 19, Alkaline Phosphatase 55, Total Protein 6.2L, Albumin 3.8 Microbiology 09/24/22 MRSA Screen - Final, Complete MRSA not isolated Assessment/Plan Assessment/Plan Assess & Plan/Chief Complaint Assessment: 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 Pain control Supportive care Does not want hemorrhoid suppository treatment only cream and we do not have that DARIO BENÍTEZ DO Sep 28, 2022 06:47
[2022-09-28 08:05] VITALS: BP 147/82
[2022-09-28] MEDS: PANTOPRAZOLE 40 MG (PROTONIX) VIAL IV SCH (09:40)
[2022-09-28] MEDS: AUGMENTIN 875 MG TAB (AMOXICILLIN/CLAVULANATE) PO SCH ×2 (09:40→17:48)
--- NOTE | 2022-09-28 10:05 | Progress Note - Surgery ---
Subjective Date Seen by a Provider: Sep 28, 2022 Time Seen by a Provider: 10:02 Subjective/Events-last exam Passing flatus. Tolerating clears. Pain controlled. Ambulating and using IS. No new complaints. Objective Exam Vital Signs Date Time Temp Pulse Resp B/P (MAP) Pulse Ox O2 Delivery O2 Flow Rate FiO2 09/28/22 08:05 36.5 75 16 147/82 (103) 93 Room Air 09/28/22 03:59 36.6 70 16 145/87 (106) 92 Room Air 09/27/22 23:57 36.8 71 18 155/86 (109) 92 Room Air 09/27/22 20:25 97 Nasal Cannula 2.00 09/27/22 19:53 36.9 72 18 127/83 (98) 97 Nasal Cannula 2.00 09/27/22 16:00 37.1 77 16 149/82 (104) 92 Room Air 09/27/22 11:32 36.6 75 18 162/86 (111) 93 Nasal Cannula 2.00 I & O 09/28/22 07:00 Intake Total 2205 ml Balance 2205 ml Capillary Refill : Less Than 3 Seconds General Appearance: No Apparent Distress, Chronically ill HEENT: PERRL/EOMI, Normal ENT Inspection Neck: Normal Inspection, Supple Respiratory: Chest Non Tender, No Accessory Muscle Use, No Respiratory Distress Cardiovascular: Regular Rate, Rhythm, No JVD Peripheral Pulses: 3+ Carotid (R), 3+ Carotid (L); 4+ Radial Pulses (R), 4+ Radial Pulses (L) Gastrointestinal: non tender, soft, tenderness (incisional minimal, incisions c/d/i has slight erythema around midline incision improved today cellulitis vs bruising) Extremity: Non Tender, No Calf Tenderness Neurologic/Psychiatric: Alert, Oriented x3, Normal Mood/Affect Skin: Normal Color, Warm/Dry Lymphatic: No Adenopathy Results Lab Laboratory Tests 09/28/22 04:55: White Blood Count 11.3H, Red Blood Count 4.16L, Hemoglobin 13.2L, Hematocrit 39L , Mean Corpuscular Volume 93, Mean Corpuscular Hemoglobin 32, Mean Corpuscular Hemoglobin Concent 34, Red Cell Distribution Width 13.2, Platelet Count 196, Mean Platelet Volume 11.4, Immature Granulocyte % (Auto) 1, Neutrophils (%) (Auto) 73, Lymphocytes (%) (Auto) 15, Monocytes (%) (Auto) 9, Eosinophils (%) (Auto) 1, Basophils (%) (Auto) 1, Neutrophils # (Auto) 8.3H, Lymphocytes # (Auto) 1.7, Monocytes # (Auto) 1.1H, Eosinophils # (Auto) 0.2, Basophils # (Auto) 0.1, Immature Granulocyte # (Auto) 0.1, Sodium Level 136, Potassium Level 3.5L, Chloride Level 105, Carbon Dioxide Level 21, Anion Gap 10, Blood Urea Nitrogen 6L, Creatinine 0.74, Estimat Glomerular Filtration Rate 96, BUN/Creatinine Ratio 8, Glucose Level 102, Calcium Level 8.5, Corrected Calcium 8.7, Total Bilirubin 1.5H, Aspartate Amino Transf (AST/SGOT) 25, Alanine Aminotransferase (ALT/SGPT) 19, Alkaline Phosphatase 55, Total Protein 6.2L, Albumin 3.8 Microbiology 09/24/22 MRSA Screen - Final, Complete MRSA not isolated Assessment/Plan Assessment/Plan Assessment/Plan 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 Hgb stable start Lovenox. He is ambulating at minimum 3 times a day and greater than 100ft. Continue IS instructed 10 x per hr while awake he isn't doing it much. Erythema vs bruising at midline incision will started Augmentin Protonix/Tums for gerd Iv fluids. Home soon. KAYLAH GRECO DO Sep 28, 2022 10:05
[2022-09-28 11:15] VITALS: BP 153/80
[2022-09-28] MEDS: HYDROCORTISONE 25 MG SUPPOSITORY (ANUSOL HC) PR PRN ×2 (12:38→19:48)
[2022-09-28 16:05] VITALS: BP 147/81
[2022-09-28 19:27] VITALS: BP 181/97
[2022-09-28] MEDS: ENOXAPARIN 40 MG/0.4 ML (LOVENOX) SYR SC SCH (19:48)
[2022-09-29 00:26] VITALS: BP 152/86
[2022-09-29 04:00] VITALS: BP 135/82
[2022-09-29 05:51] LABS: BASOPHILS % (AUTO) 1 % (0-10); EOSINOPHILS # (AUTO) 0.1 10^3/uL (0.0-0.3); EOSINOPHILS % (AUTO) 2 % (0-10); HEMATOCRIT 36 % (40-54); HEMOGLOBIN 12.3 g/dL (13.3-17.7); LYMPHOCYTES # (AUTO) 1.4 10^3/uL (1.0-4.0); LYMPHOCYTES % (AUTO) 17 % (12-44); MEAN CORPUSCULAR HEMOGLOBIN 32 pg (25-34); MEAN CORPUSCULAR HGB CONC 34 g/dL (32-36); MEAN CORPUSCULAR VOLUME 93 fL (80-99); MEAN PLATELET VOLUME 11.5 fL (9.0-12.2); MONOCYTES # (AUTO) 0.8 10^3/uL (0.0-1.0); MONOCYTES % (AUTO) 10 % (0-12); NEUTROPHILS # (AUTO) 5.7 10^3/uL (1.8-7.8); NEUTROPHILS % (AUTO) 70 % (42-75); PLATELET COUNT 161 10^3/uL (130-400); WHITE BLOOD COUNT 8.1 10^3/uL (4.3-11.0)
--- NOTE | 2022-09-29 06:05 | Progress Note ---
Subjective Date Seen by a Provider: Sep 29, 2022 Time Seen by a Provider: 09:00 Subjective/Events-last exam Patient doing really well Gas is being passed Bowels moving Advancing diet Review of Systems General: Fatigue, Malaise Objective Exam Last Set of Vital Signs Vital Signs Date Time Temp Pulse Resp B/P (MAP) Pulse Ox O2 Delivery O2 Flow Rate FiO2 09/29/22 04:00 37.0 85 20 135/82 (99) 94 Room Air 09/27/22 20:25 2.00 Capillary Refill : Less Than 3 Seconds I&O Intake and Output 09/29/22 00:00 Intake Total 2400 ml Balance 2400 ml Intake Oral 2400 ml # Voids 9 # Bowel Movements 3 General: Alert, Oriented X3, Cooperative, No Acute Distress Lungs: Clear to Auscultation, Normal Air Movement Heart: Regular Rate, Normal S1, Normal S2, No Murmurs Psych/Mental Status: Mental Status NL, Mood NL Results Lab Laboratory Tests 09/29/22 05:04: Microbiology 09/24/22 MRSA Screen - Final, Complete MRSA not isolated Assessment/Plan Assessment/Plan Assess & Plan/Chief Complaint Assessment: 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 Pain control Supportive care DARIO BENÍTEZ DO Sep 29, 2022 06:05
[2022-09-29 06:12] LABS: ALBUMIN 3.5 GM/DL (3.2-4.5); BILIRUBIN,TOTAL 1.3 MG/DL (0.1-1.0); CALCIUM 8.3 MG/DL (8.5-10.1); CREATININE SERUM 0.74 MG/DL (0.60-1.30); POTASSIUM 3.2 MMOL/L (3.6-5.0); TOTAL PROTEIN 5.7 GM/DL (6.4-8.2)
[2022-09-29] MEDS ORDERED: KCL 20 MEQ TAB (K-DUR) PO ONE (07:15)
[2022-09-29 07:53] VITALS: BP 144/82
[2022-09-29] MEDS: AUGMENTIN 875 MG TAB (AMOXICILLIN/CLAVULANATE) PO SCH ×2 (08:15→17:59)
[2022-09-29] MEDS: PANTOPRAZOLE 40 MG (PROTONIX) TAB PO SCH ×2 (08:15→09:00)
[2022-09-29 12:45] VITALS: BP 163/89
[2022-09-29 15:30] VITALS: BP 144/82
--- NOTE | 2022-09-29 16:47 | Progress Note - Surgery ---
Subjective Date Seen by a Provider: Sep 29, 2022 Time Seen by a Provider: 08:39 Subjective/Events-last exam Patient passing flatus. Tolerating clears. Wanting food and wanting to go home. Pain controlled. Denies n/v fever sweats chills shorntess of breath or chest pain. Objective Exam Vital Signs Date Time Temp Pulse Resp B/P (MAP) Pulse Ox O2 Delivery O2 Flow Rate FiO2 09/29/22 15:30 36.6 81 18 144/82 (102) 96 Room Air 09/29/22 12:45 36.6 85 18 163/89 (113) 94 Room Air 09/29/22 09:00 Room Air 09/29/22 07:53 36.4 80 18 144/82 (102) 95 Room Air 09/29/22 04:00 37.0 85 20 135/82 (99) 94 Room Air 09/29/22 00:26 36.8 70 22 152/86 (108) 93 Room Air 09/28/22 21:58 Room Air 09/28/22 19:27 37.1 96 22 181/97 (125) 92 Room Air 09/28/22 18:46 Room Air I & O 09/29/22 07:00 Intake Total 2750 ml Balance 2750 ml Capillary Refill : Less Than 3 Seconds General Appearance: No Apparent Distress, Chronically ill HEENT: PERRL/EOMI, Normal ENT Inspection Neck: Normal Inspection, Supple Respiratory: Chest Non Tender, No Accessory Muscle Use, No Respiratory Distress Cardiovascular: Regular Rate, Rhythm, No JVD Peripheral Pulses: 3+ Carotid (R), 3+ Carotid (L); 4+ Radial Pulses (R), 4+ Radial Pulses (L) Gastrointestinal: non tender, soft, tenderness (incisional minimal, incisions c/d/i has no erythema around midline incision improved today cellulitis vs bruising) Extremity: Non Tender, No Calf Tenderness Neurologic/Psychiatric: Alert, Oriented x3, Normal Mood/Affect Skin: Normal Color, Warm/Dry Lymphatic: No Adenopathy Results Lab Laboratory Tests 09/29/22 05:04: White Blood Count 8.1, Red Blood Count 3.89L, Hemoglobin 12.3L, Hematocrit 36L, Mean Corpuscular Volume 93, Mean Corpuscular Hemoglobin 32, Mean Corpuscular Hemoglobin Concent 34, Red Cell Distribution Width 13.3, Platelet Count 161, Mean Platelet Volume 11.5, Immature Granulocyte % (Auto) 0, Neutrophils (%) (Auto) 70, Lymphocytes (%) (Auto) 17, Monocytes (%) (Auto) 10, Eosinophils (%) (Auto) 2, Basophils (%) (Auto) 1, Neutrophils # (Auto) 5.7, Lymphocytes # (Auto) 1.4, Monocytes # (Auto) 0.8, Eosinophils # (Auto) 0.1, Basophils # (Auto) 0.0, Immature Granulocyte # (Auto) 0.0, Sodium Level 138, Potassium Level 3.2L, Chloride Level 107, Carbon Dioxide Level 20L, Anion Gap 11, Blood Urea Nitrogen 5L, Creatinine 0.74, Estimat Glomerular Filtration Rate 96, BUN/Creatinine Ratio 7, Glucose Level 97, Calcium Level 8.3L, Corrected Calcium 8.7, Total Bilirubin 1.3H, Aspartate Amino Transf (AST/SGOT) 23, Alanine Aminotransferase (ALT/SGPT) 20, Alkaline Phosphatase 55, Total Protein 5.7L, Albumin 3.5 Microbiology 09/24/22 MRSA Screen - Final, Complete MRSA not isolated Assessment/Plan Assessment/Plan Assessment/Plan Assessment: 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
[2022-09-29] MEDS ORDERED: AMOX1TAB12 PO (17:01)
[2022-09-29] MEDS ORDERED: ACHD5005 PO (17:01)
--- NOTE | 2022-09-29 17:02 | Discharge Inst-Simple/Standard ---
Discharge Inst-Standard Discharge Medications New, Converted or Re-Newed RX: Transmitted to Pharmacy Patient Instructions/Follow Up Plan of Care/Instructions/FU: 2 weeks Gilda Activity as Tolerated: No Discharge Diet: Regular Diet Other Inst to Patient Follow up Appt: Make appointment for 2 week. Instructions: No lifting greater than 10 pounds. No strenuous activity. May shower in 24 hours, no tub bath or soaking. Use incentive spirometer at home as directed. No Smoking Skin/Wound Care: Keep area clean and dry. Symptoms to Report: Appetite Changes, Extremity Discoloration, Numbness/Tingling, Swelling Increased, Bleeding Excessive, Eyesight Changes, Pain Increased, Urine Color Change, Constipation(Persistent), Fever over 101 degree F, Pain/Pressure in chest, Urinating Difficulty, Cough Up/Vomit Blood, Heart Beat Irreg/Pounding, Pain/Pressure in jaw, Vaginal Bleeding Increase, Cramps in feet or legs, Lightheadedness, Pain/Pressure in shoulder, Diarrhea(Persistent), Memory Changes Suddenly, Questions/Concerns, Weight gain consecutive days, Dizziness/Fainting, Nausea/Vomiting, Shortness of Breath, Weight gain over 2 pounds If questions or concerns contact your physician Or seek help at emergency department. KAYLAH GRECO DO Sep 29, 2022 17:02
[2022-09-29 18:30] VITALS: BP 144/82
--- NOTE | 2022-10-02 08:48 | Physician Query Clarification ---
[facility] Path Diagnosis Admission/Discharge Admission Date: Sep 24, 2022 at 06:58 Discharge Date: Sep 29, 2022 at 18:30 Dr. Vo, The medical record reflects the following: tubovillous adenoma rt colon The pathology report findings document: invasive well differentiated colonic adenocarcinoma Question: Do you agree with the pathology report findings of invasive well differentiated colonic adenocarcinoma rt colon? Please document a response in Progress Notes or Discharge Summary. 1. Agree with pathological diagnosis of invasive well differentiated colonic adenocarcinoma rt colon 2. No - Do not agree with pathology findings of invasive well differentiated colonic adenocarcinoma rt colon. 3. Other, with explanation of the clinical findings. 4. Clinically undetermined, no explanation for the clinical findings. Is is appropriate for a provider to add additional documentation (addenda) to the record to explain the evaluation & care up to 30 days post-discharge. See [facility] and Patient Record Guidelines below. The [facility] Chapter Record of Care, Standard; [id number].01.03.01EP 1: "The hospital has a written policy that required timely entry of information into the medical record." According to [facility] Patient Record Guidelines, ARTICLE XXI. CORRECTIONS AND ADDENDA, Modifications (addenda amendments, corrections and retractions) should be made timely and no later than regulatory requirements for record completion (i.e. 30 days post discharge). Official coding guidelines require coders to query the physician for agreement with pathology findings that occur during the encounter. Coders are not allowed to pull information directly from the path reports. In responding to this query, please exercise your independent professional judgment. The purpose of this communication is to more accurately reflect the complexity of your patients condition. The fact that a question is asked does not imply that any particular answer is desired or expected. Thank you for your timely response to this clarification. Requestors name: Makeda THIS PHYSICIAN QUERY FORM IS A PERMANENT PART OF THE MEDICAL RECORD MAKEDA ESPINO Oct 02, 2022 08:48
== END 2022-09-29 18:30 | disposition home or self-care (01) | DRG 330 ==
LOC: 4TH 06:58 → SURG 06:59 → 4TH 11:25
PROVIDERS: ADMIT Surgery; ATTEND Surgery
PROC: 0DTF0ZZ Resection of Right Large Intestine, Open Approach (ICD-10-PCS; principal; 2022-09-24 08:20)
DX: C18.2 Malignant neoplasm of ascending colon (principal); K56.7 Ileus, unspecified; K91.89 Other postprocedural complications and disorders of digestive system; J44.9 Chronic obstructive pulmonary disease, unspecified; I10 Essential (primary) hypertension; K21.9 Gastro-esophageal reflux disease without esophagitis; K64.9 Unspecified hemorrhoids; D64.9 Anemia, unspecified; D72.829 Elevated white blood cell count, unspecified; Z87.891 Personal history of nicotine dependence; Z87.442 Personal history of urinary calculi; Z86.010 Personal history of colon polyps
CPT/HCPCS: 36415; 80053; 85025; 86850; 86900; 86901; 87081; 94664; 94760

== ENCOUNTER → 2022-10-20 | Outpatient (CLI) | payer MEDICARE ==
[~2022-10-20] MED LIST: ACHD5005 PO; AMOX1TAB12 PO; CATHETER FLUSH 10 ML SYR IVP PRN; MULT-1029 PO
--- NOTE | 2022-10-21 14:17 | Diagnostic Imaging Report ---
Indication: Initial staging adenocarcinoma of the colon. Serum blood glucose level time injection is 99 mg/dL. Patient was administered 10.3 mCi F-18 FDG intravenously in the right hand and PET imaging was performed from the top of skull to mid thighs. Noncontrast CT was also performed for attenuation correction and anatomic correlation. No prior PET/CT studies are available for comparison. There is symmetric activity throughout the brain. Soft tissues of the neck are unremarkable. No definite mediastinal or hilar hypermetabolism is identified. No definite pulmonary parenchymal hypermetabolism is seen. The liver does contain several low-attenuation lesions suggestive of cysts. There is physiologic activity throughout the gastrointestinal and genitourinary tract of abdomen and pelvis. No suspicious areas of hypermetabolism is identified. No hypermetabolic lymphadenopathy is seen. IMPRESSION: Unremarkable PET/CT study. No suspicious areas of hypermetabolism are identified. Dictated by: Dictated on workstation # [id number]
== END ==
LOC: RAD 09:20
PROVIDERS: ATTEND Surgery
DX: C18.9 Malignant neoplasm of colon, unspecified (principal)
CPT/HCPCS: 78815; 82947; A9552

== ENCOUNTER 2022-11-10 14:18 | Outpatient (RCR) | payer MEDICARE ==
[~2022-11-10 14:18] MED LIST changes: -CATHETER FLUSH 10 ML SYR IVP PRN
== END 2022-12-04 | disposition home or self-care (01) ==
LOC: LAB 14:18
PROVIDERS: ATTEND Surgery
DX: A08.8 Other specified intestinal infections (principal); B96.81 Helicobacter pylori [H. pylori] as the cause of diseases classified elsewhere
CPT/HCPCS: 36415; 87338

== ENCOUNTER → 2023-01-06 | Outpatient (CLI) | payer MEDICARE ==
--- NOTE | 2023-01-06 17:40 | Diagnostic Imaging Report ---
EXAMINATION: Chest 2 view HISTORY: Short of breath. COMPARISON: None available. FINDINGS: The lungs are clear without edema or pneumonia. No pleural effusion or pneumothorax. Heart size is normal. Hemidiaphragm is elevated. IMPRESSION: 1. Clear lungs. Dictated by: Dictated on workstation # [id number]
== END ==
LOC: RAD 10:18
PROVIDERS: ATTEND Physician Assistant
DX: R06.02 Shortness of breath (principal); Z87.891 Personal history of nicotine dependence
CPT/HCPCS: 71046